=== PATIENT | male | born 1990 | race African-American/Black ===

== ENCOUNTER 2025-05-29 20:54 | Inpatient (IN) | payer MEDICAID ==
[~2025-05-29] VITALS: Ht 165.1 cm; Wt 70.8 kg
[2025-05-29 20:59] VITALS: O2SAT 100
[2025-05-29 21:32] LABS: HEMATOCRIT. 30.6 % (42.0-52.0); HEMOGLOBIN. 7.8 g/dL (14.0-18.0); MEAN PLATELET VOLUME 8.5 fl (7.4-10.4); PLATELET 694 x1000/uL (130-400); RED BLOOD CELL COUNT 5.78 mill/uL (4.7-6.1); RED CELL DISTRIBUTION WIDTH 23.4 % (11.6-14.6)
[2025-05-29 21:41] LABS: CLARITY URINE CLOUDY (CLEAR); COLOR URINE YELLOW (YELLOW); GLUCOSE URINE NEGATIVE (NEGATIVE); KETONES URINE TRACE (NEGATIVE); LEUKOCYTE ESTERASE URINE 3+ (NEGATIVE); NITRITE URINE NEGATIVE (NEGATIVE); OCCULT BLOOD URINE TRACE (NEGATIVE); PH URINE 6.0 (4.5-8.0); PROTEIN URINE 1+ (NEGATIVE); SPECIFIC GRAVITY URINE 1.013 (1.005-1.030); UROBILINOGEN URINE 1.0 E.U./dL (0.2-1.0)
[2025-05-29 21:47] LABS: CREATININE 0.9 mg/dL (0.6-1.3); UREA NITROGEN BLOOD 11 mg/dL (9-23)
[2025-05-29 21:53] LABS: EOSINOPHILS % MANUAL 1.0 % (0.0-5.0); LYMPHOCYTES % MANUAL 10.0 % (20.0-50.0); MONOCYTES % MANUAL 5.0 % (2.0-8.0); NEUTROPHILS % MANUAL 84.0 % (45.0-75.0); PLATELET ESTIMATE INCREASED
[2025-05-29 22:11] LABS: BACTERIA URINE TRACE; RBC URINE 0-2 /hpf (0-2); SQUAMOUS EPITHELIAL CELL URINE FEW /lpf (RARE/1+); WBC URINE 50-100 /hpf (0-2)
[2025-05-29] MEDS: ONDANSETRON HCL 4MG/2ML INJ IV ONE (22:40)
[2025-05-29] MEDS: SODIUM CHLORIDE 0.9% (SEPSIS BOLUS) IV ONE (22:40)
[2025-05-29] MEDS: PIPERACILLIN/TAZO 3.375G/50ML 50 ML IV ONE (22:41)
[2025-05-29 22:47] LABS: ASPARTATE AMINOTRANSFERASE 53 IU/L (<34)
[2025-05-29 22:48] LABS: BILIRUBIN DIRECT 0.2 mg/dL (<=3.0); BILIRUBIN TOTAL 0.4 mg/dL (0.1-1.0); PROTEIN TOTAL 6.7 g/dL (6.0-8.3)
[2025-05-30] MEDS: VANCOMYCIN 1G PREMIX 200 ML IV ONE (00:33)
[2025-05-30] MEDS ORDERED: CLONIDINE 0.1MG TABLET PO PRN (00:45)
[2025-05-30] MEDS ORDERED: CEFTRIAXONE 1,000 MG in DEXT 5% WATER 100 ML IV SCH (00:45)
[2025-05-30] MEDS ORDERED: ONDANSETRON HCL 4MG/2ML INJ IV PRN (00:45)
[2025-05-30] MEDS ORDERED: ACETAMINOPHEN 325MG TABLET PO PRN (00:45)
[2025-05-30] MEDS: KCL 20MEQ/100ML PREMIX 100 ML IV SCH (00:51)
[2025-05-30] MEDS: MAGNESIUM 2 G PREMIX 50 ML IV SCH (00:51)
[2025-05-30] MEDS: ACETAMINOPHEN 325MG TABLET PO PRN (01:14)
[2025-05-30 02:00] VITALS: BP 124/86; PULSE 100; RESP 19; TEMP 36.4; TEMP 36.4736; O2SAT 100
[2025-05-30] MEDS: PANTOPRAZOLE SODIUM 40 MG/VIAL IV SCH (02:33)
[2025-05-30] MEDS: AZITHROMYCIN 500 MG TABLET PO SCH (02:33)
[2025-05-30] MEDS: CEFTRIAXONE 1GM/50ML 50ML IV SCH (02:58)
[2025-05-30] MEDS: SODIUM CHLORIDE 0.9% 1,000 ML IV SCH (02:59)
[2025-05-30 03:13] LABS: LACTATE DEHYDROGENASE 210 IU/L (120-246)
[2025-05-30 04:00] VITALS: BP 121/84; PULSE 84; RESP 19; TEMP 36.6; O2SAT 100
[2025-05-30] MEDS: HYDROCODONE/ACETAMINOPHEN 5/325MG TABLET PO NR (04:19)
[2025-05-30 08:49] LABS: FOLIC ACID (FOLATE) SERUM 6.66 ng/mL (>5.38); VITAMIN B12 SERUM 764 pg/mL (211-911)
[2025-05-30 09:14] LABS: *AMPHETAMINES SCREEN URINE NEGATIVE (NEGATIVE); *BARBITURATES SCREEN URINE NEGATIVE (NEGATIVE); *BENZODIAZEPINES SCREEN URINE NEGATIVE (NEGATIVE); *COCAINE SCREEN URINE NEGATIVE (NEGATIVE); METHADONE URINE SCREEN NEGATIVE (NEGATIVE)
[2025-05-30 09:15] LABS: CANNABINOID URINE SCREEN PRESUMPTIVE POSITIVE (NEGATIVE); ECSTASY MDMA SCREEN URINE NEGATIVE (NEGATIVE); OPIATES URINE SCREEN PRESUMPTIVE POSITIVE (NEGATIVE); PHENCYCLIDINE URINE SCREEN NEGATIVE (NEGATIVE)
[2025-05-30] MEDS ORDERED: DIATR MEGLU/DIATRIZOATE SOLN 30ML PO SCH (09:15)
[2025-05-30] MEDS ORDERED: DIATR MEGLU/DIATRIZOATE SOLN 120ML ONE (10:46)
[2025-05-30 12:00] VITALS: BP 110/71; PULSE 96; RESP 18; TEMP 36.4; O2SAT 100
[2025-05-30 16:00] VITALS: BP 103/65; PULSE 104; RESP 18; TEMP 36.2; O2SAT 100
[2025-05-30 20:00] VITALS: BP 115/74; PULSE 102; RESP 19; TEMP 36.4; O2SAT 99
[2025-05-30] MEDS: GUAIFENESIN 200MG/10ML SUGAR FREE UDC PO PRN (20:57)
[2025-05-30] MEDS: MORPHINE SULFATE 2 MG/ML INJ (NOT FOR IM USE) IV NR (23:48)
[2025-05-31] VITALS (7 sets, daily range): BP systolic 111–127; BP diastolic 74–81; PULSE 92–104; RESP 14–20; TEMP 36.114–37; O2SAT 99
[2025-05-31 06:04] LABS: CREATININE 0.7 mg/dL (0.6-1.3); TRIGLYCERIDE 66 mg/dL (0-150); UREA NITROGEN BLOOD < 5 mg/dL (9-23)
[2025-05-31 06:05] LABS: LDL CHOLESTEROL 58 mg/dL (5-100); T4 FREE 0.99 ng/dL (0.89-1.76)
[2025-05-31 07:05] LABS: BASOPHILS % 0.4 % (0.0-2.0); EOSINOPHILS % 0.8 % (0.0-5.0); HEMATOCRIT. 22.3 % (42.0-52.0); LYMPHOCYTES % 14.0 % (20.0-50.0); MEAN PLATELET VOLUME 8.6 fl (7.4-10.4); MONOCYTES % 10.4 % (2.0-8.0); NEUTROPHILS % 74.4 % (40.0-76.0); PLATELET 502 x1000/uL (130-400); RED BLOOD CELL COUNT 4.20 mill/uL (4.7-6.1); RED CELL DISTRIBUTION WIDTH 22.8 % (11.6-14.6)
[2025-05-31 07:50] LABS: HEMOGLOBIN. 6.0 g/dL (14.0-18.0)
[2025-05-31] MEDS: POTASSIUM CHLORIDE 20MEQ TABLET SR PO SCH (07:53)
[2025-05-31] MEDS ORDERED: NALOXONE HCL 0.4MG/ML VIAL IV PRN (08:00)
[2025-05-31] MEDS ORDERED: KCL 20MEQ/100ML PREMIX 100 ML IV SCH (09:30)
[2025-05-31] MEDS: KCL 20MEQ/100ML PREMIX 100 ML IV SCH ×2 (15:42→23:15)
[2025-05-31] MEDS: HYDROCODONE/ACETAMINOPHEN 5/325MG TABLET PO PRN (20:26)
[2025-06-01] VITALS (8 sets, daily range): BP systolic 107–127; BP diastolic 72–93; PULSE 82–101; RESP 16–20; TEMP 36.7–37.39188; O2SAT 98–100
[2025-06-01 05:26] LABS: CREATININE 0.5 mg/dL (0.6-1.3); UREA NITROGEN BLOOD < 5 mg/dL (9-23)
[2025-06-01 06:44] LABS: BASOPHILS % 0.5 % (0.0-2.0); EOSINOPHILS % 1.2 % (0.0-5.0); LYMPHOCYTES % 15.9 % (20.0-50.0); MEAN PLATELET VOLUME 8.5 fl (7.4-10.4); MONOCYTES % 8.6 % (2.0-8.0); NEUTROPHILS % 73.8 % (40.0-76.0); PLATELET 485 x1000/uL (130-400); RED BLOOD CELL COUNT 4.05 mill/uL (4.7-6.1); RED CELL DISTRIBUTION WIDTH 24.5 % (11.6-14.6)
[2025-06-01 06:57] LABS: ADD RBC MORPHOLOGY NO; HEMATOCRIT. 23.0 % (42.0-52.0); HEMOGLOBIN. 6.6 g/dL (14.0-18.0)
[2025-06-01] MEDS ORDERED: KCL 20MEQ/100ML PREMIX 100 ML IV SCH (08:15)
[2025-06-01] MEDS: KCL 20MEQ/100ML PREMIX 100 ML IV SCH (16:31)
[2025-06-02] VITALS: BP 121/73; PULSE 88; RESP 17; TEMP 36.6; O2SAT 98
[2025-06-02 07:57] LABS: INR 1.1
[2025-06-02 07:58] LABS: CREATININE 0.6 mg/dL (0.6-1.3); UREA NITROGEN BLOOD < 5 mg/dL (9-23)
[2025-06-02 08:00] VITALS: BP 116/80; PULSE 89; RESP 18; TEMP 36.2; O2SAT 100
[2025-06-02 08:45] LABS: BASOPHILS % 0.9 % (0.0-2.0); EOSINOPHILS % 3.1 % (0.0-5.0); HEMATOCRIT. 33.0 % (42.0-52.0); HEMOGLOBIN. 9.8 g/dL (14.0-18.0); LYMPHOCYTES % 38.4 % (20.0-50.0); MEAN PLATELET VOLUME 8.6 fl (7.4-10.4); MONOCYTES % 9.3 % (2.0-8.0); NEUTROPHILS % 48.3 % (40.0-76.0); PLATELET 651 x1000/uL (130-400); RED BLOOD CELL COUNT 5.28 mill/uL (4.7-6.1); RED CELL DISTRIBUTION WIDTH 36.6 % (11.6-14.6)
[2025-06-02] MEDS ORDERED: PROPOFOL 200MG/20ML VIAL IV ONE (11:54)
[2025-06-02] MEDS ORDERED: FENTANYL CITRATE/PF 50MCG/ML 2ML VIAL ONE (12:11)
[2025-06-02] MEDS ORDERED: MIDAZOLAM HCL 2 MG/2 ML VIAL ONE (12:11)
[2025-06-02] MEDS ORDERED: ONDANSETRON HCL 4MG/2ML INJ IV PRN (13:00)
[2025-06-02] MEDS ORDERED: MEPERIDINE HCL/PF 25MG/ML CPJ IV PRN (13:00)
[2025-06-02] MEDS ORDERED: FAMOTIDINE 20MG/2ML VIAL IV PRN (13:00)
[2025-06-02] MEDS ORDERED: HYDRALAZINE 20MG/ML VIAL IV PRN ×2 (13:00)
[2025-06-02] MEDS ORDERED: HYDROMORPHONE HCL/PF 1MG/ML INJ IV PRN (13:00)
[2025-06-02] MEDS ORDERED: LABETALOL 5MG/ML 4ML INJ IV PRN (13:00)
[2025-06-02] MEDS ORDERED: ACETAMINOPHEN 1,000MG/100ML PREMIX IV PRN (13:00)
[2025-06-02 13:30] VITALS: BP 116/80; PULSE 89; RESP 18; TEMP 36.9; O2SAT 100
[2025-06-02 16:00] VITALS: BP 127/79; PULSE 105; RESP 20; TEMP 36.7; O2SAT 98
[2025-06-02] MEDS: KCL 20MEQ/100ML PREMIX 100 ML IV SCH (16:46)
[2025-06-02 20:00] VITALS: BP 120/87; PULSE 94; RESP 20; TEMP 36.9; O2SAT 98
[2025-06-03] VITALS: BP 132/94; PULSE 91; RESP 20; TEMP 36.8; O2SAT 99
[2025-06-03 04:00] VITALS: BP 126/89; PULSE 81; RESP 20; TEMP 36.3; O2SAT 100
[2025-06-03 07:14] LABS: BASOPHILS % 1.6 % (0.0-2.0); EOSINOPHILS % 4.4 % (0.0-5.0); HEMATOCRIT. 29.0 % (42.0-52.0); HEMOGLOBIN. 8.6 g/dL (14.0-18.0); LYMPHOCYTES % 33.6 % (20.0-50.0); MEAN PLATELET VOLUME 8.5 fl (7.4-10.4); MONOCYTES % 11.4 % (2.0-8.0); NEUTROPHILS % 49.0 % (40.0-76.0); PLATELET 629 x1000/uL (130-400); RED BLOOD CELL COUNT 4.74 mill/uL (4.7-6.1); RED CELL DISTRIBUTION WIDTH 36.9 % (11.6-14.6)
[2025-06-03 07:19] LABS: CREATININE 0.5 mg/dL (0.6-1.3)
[2025-06-03 07:20] LABS: UREA NITROGEN BLOOD < 5 mg/dL (9-23)
[2025-06-03 08:00] VITALS: BP 127/77; PULSE 88; RESP 20; TEMP 36.8; O2SAT 100
[2025-06-03] MEDS: POTASSIUM CHLORIDE 20MEQ TABLET SR PO NR (08:02)
[2025-06-03 09:49] VITALS: BP 124/71; PULSE 76; RESP 20; TEMP 98.3
[2025-06-03] MEDS ORDERED: NON FORMULARY MED XX SCH (11:45)
[2025-06-03] MEDS: IRON SUCROSE COMPLEX 100 MG/5 ML ML IV SCH (11:56)
[2025-06-03 12:00] VITALS: BP 124/76; PULSE 98; RESP 18; TEMP 36.7; O2SAT 98
[2025-06-03] MEDS ORDERED: TOPUD PO ×2 (13:21→13:22)
== END 2025-06-03 15:35 | disposition home or self-care (01) | DRG 254 ==
LOC: ER 20:54 → 8WST 23:59 → EDBEDREQTM 05-30 00:20 → EDBEDREQ 05-30 00:20 → ENRESERV 05-30 00:51
PROVIDERS: ADMIT Internal Medicine; ATTEND Internal Medicine
PROC: 30233N1 Transfusion of Nonautologous Red Blood Cells into Peripheral Vein, Percutaneous Approach (ICD-10-PCS; 2025-05-31)
PROC: 0DBH8ZX Excision of Cecum, Via Natural or Artificial Opening Endoscopic, Diagnostic (ICD-10-PCS; principal; 2025-06-02)
PROC: 0DBE8ZX Excision of Large Intestine, Via Natural or Artificial Opening Endoscopic, Diagnostic (ICD-10-PCS; 2025-06-02)
PROC: 0DBP8ZX Excision of Rectum, Via Natural or Artificial Opening Endoscopic, Diagnostic (ICD-10-PCS; 2025-06-02)
DX: K63.5 Polyp of colon (principal); A08.4 Viral intestinal infection, unspecified; D12.6 Benign neoplasm of colon, unspecified; D50.9 Iron deficiency anemia, unspecified; F17.290 Nicotine dependence, other tobacco product, uncomplicated; D56.3 Thalassemia minor; R65.10 Systemic inflammatory response syndrome (SIRS) of non-infectious origin without acute organ dysfunction; K52.89 Other specified noninfective gastroenteritis and colitis; J20.9 Acute bronchitis, unspecified; D75.839 Thrombocytosis, unspecified; E86.0 Dehydration; E87.6 Hypokalemia; Z20.822 Contact with and (suspected) exposure to COVID-19
CPT/HCPCS: 36415; 71045; 74176; 80048; 80061; 80076; 80305; 81003; 82270; 82607; 82728; 82746; 83540; 83550; 83605; 83615; 83735; 84132; 84439; 84443; 84481; 85025; 85044; 86850; 86900; 86920; 87015; 87045; 87077; 87186; 87426; 87427; 87449; 88305; 89055; 93005; 96365; 96367; 96375; 99291; A4606; J0696; J2250; J2270; J2405; J2470; J2543; J2704; J3010; J3373; J3475; J3480; J7030; P9016; Q9963

== ENCOUNTER 2025-08-28 17:13 | Inpatient (IN) | payer SELFPAY ==
[~2025-08-28] VITALS: Ht 177.8 cm; Wt 69.4 kg
[~2025-08-28 17:13] MED LIST: TOPUD PO
[2025-08-28 17:25] VITALS: O2SAT 99
[2025-08-28] MEDS ORDERED: IBUPROFEN 600MG TABLET PO ONE (19:00)
[2025-08-28 19:22] LABS: CLARITY URINE CLOUDY (CLEAR); COLOR URINE DARK YELLOW (YELLOW); GLUCOSE URINE NEGATIVE (NEGATIVE); KETONES URINE TRACE (NEGATIVE); LEUKOCYTE ESTERASE URINE 2+ (NEGATIVE); NITRITE URINE NEGATIVE (NEGATIVE); OCCULT BLOOD URINE 2+ (NEGATIVE); PH URINE 5.5 (4.5-8.0); PROTEIN URINE 1+ (NEGATIVE); SPECIFIC GRAVITY URINE 1.018 (1.005-1.030); UROBILINOGEN URINE 0.2 E.U./dL (0.2-1.0)
[2025-08-28] MEDS: SODIUM CHLORIDE 0.9% 1,000 ML IV ONE (19:28)
[2025-08-28] MEDS: KETOROLAC 15MG/ML VIAL IV ONE (19:28)
[2025-08-28 19:36] LABS: *AMPHETAMINES SCREEN URINE NEGATIVE (NEGATIVE); *BARBITURATES SCREEN URINE NEGATIVE (NEGATIVE); *BENZODIAZEPINES SCREEN URINE NEGATIVE (NEGATIVE); *COCAINE SCREEN URINE NEGATIVE (NEGATIVE); METHADONE URINE SCREEN NEGATIVE (NEGATIVE); OPIATES URINE SCREEN NEGATIVE (NEGATIVE)
[2025-08-28 19:37] LABS: CANNABINOID URINE SCREEN PRESUMPTIVE POSITIVE (NEGATIVE); ECSTASY MDMA SCREEN URINE NEGATIVE (NEGATIVE); PHENCYCLIDINE URINE SCREEN NEGATIVE (NEGATIVE)
[2025-08-28 19:42] LABS: SQUAMOUS EPITHELIAL CELL URINE 2+ /lpf (RARE/1+); WBC URINE 25-50 /hpf (0-2)
[2025-08-28 19:43] LABS: BACTERIA URINE 3+; RBC URINE 25-50 /hpf (0-2)
[2025-08-28 20:02] LABS: HEMATOCRIT. 33.8 % (42.0-52.0); HEMOGLOBIN. 9.7 g/dL (14.0-18.0); MEAN PLATELET VOLUME 7.1 fl (7.4-10.4); PLATELET 924 x1000/uL (130-400); RED BLOOD CELL COUNT 5.12 mill/uL (4.7-6.1); RED CELL DISTRIBUTION WIDTH 21.3 % (11.6-14.6)
[2025-08-28 20:49] LABS: MONOTEST NEGATIVE (NEGATIVE)
[2025-08-28] MEDS: PIPERACILLIN/TAZO 3.375G/50ML 50 ML IV ONE (21:29)
[2025-08-28] MEDS: SODIUM CHLORIDE 0.9% (SEPSIS BOLUS) IV ONE (21:29)
[2025-08-28 21:51] LABS: INR 1.5
[2025-08-28] MEDS ORDERED: CLONIDINE 0.1MG TABLET PO PRN (22:45)
[2025-08-28] MEDS ORDERED: MAGNESIUM/ALUMINUM HYDROXIDE/SIMETHICONE 30ML UDC PO PRN (22:45)
[2025-08-28] MEDS ORDERED: ONDANSETRON HCL 4MG/2ML INJ IV PRN (22:45)
[2025-08-28] MEDS ORDERED: ACETAMINOPHEN 325MG TABLET PO PRN (22:45)
[2025-08-28] MEDS: LACTATED RINGERS 1,000 ML IV SCH (22:45)
[2025-08-28] MEDS ORDERED: DOCUSATE SODIUM 100MG CAPSULE PO PRN (22:45)
[2025-08-28] MEDS ORDERED: IPRATROPIUM/ALBUTEROL 0.5-3(2.5)MG/3ML NEB HHN PRN (22:45)
[2025-08-28] MEDS ORDERED: GUAIFENESIN 200MG/10ML SUGAR FREE UDC PO PRN (22:45)
[2025-08-28] MEDS: KETOROLAC 15MG/ML VIAL IV PRN (23:48)
[2025-08-28] MEDS: CALCIUM GLUCONATE 1GM PREMIX 50 ML IV SCH (23:53)
[2025-08-28] MEDS: CEFTRIAXONE 2GM/50ML 50 ML IV SCH (23:53)
[2025-08-29] VITALS (7 sets, daily range): BP systolic 97–123; BP diastolic 58–74; PULSE 93–107; RESP 16–18; TEMP 36.3–36.9; O2SAT 98–100
[2025-08-29 00:27] LABS: EOSINOPHILS % MANUAL 2.0 % (0.0-5.0); LYMPHOCYTES % MANUAL 3.0 % (20.0-50.0); MONOCYTES % MANUAL 4.0 % (2.0-8.0); NEUTROPHILS % MANUAL 91.0 % (45.0-75.0); PLATELET ESTIMATE MARKEDLY INCREASED
[2025-08-29 02:20] LABS: UREA NITROGEN BLOOD 54 mg/dL (9-23)
[2025-08-29 02:21] LABS: ASPARTATE AMINOTRANSFERASE 78 IU/L (<34)
[2025-08-29 02:22] LABS: BILIRUBIN TOTAL 1.1 mg/dL (0.1-1.0); PHOSPHORUS 5.6 mg/dL (2.5-4.9); PROTEIN TOTAL 5.5 g/dL (6.0-8.3)
[2025-08-29 02:25] LABS: CREATININE 4.5 mg/dL (0.6-1.3)
[2025-08-29] MEDS: POTASSIUM CHLORIDE 20MEQ/PACKET PO NR (02:44)
[2025-08-29] MEDS: KCL 20MEQ/100ML PREMIX 100 ML IV SCH (02:44)
[2025-08-29] MEDS: SODIUM CHLORIDE 0.9% 250 ML IV ONE (03:01)
[2025-08-29] MEDS ORDERED: MELATONIN 3MG TABLET PO PRN (05:30)
[2025-08-29 06:22] LABS: CHLORIDE URINE RANDOM < 20 mEq/L; POTASSIUM URINE RANDOM 6.4 mEq/L
[2025-08-29 06:23] LABS: SODIUM URINE RANDOM 17 mEq/L
[2025-08-29 06:41] LABS: CREATININE 4.6 mg/dL (0.6-1.3)
[2025-08-29 06:42] LABS: HEMATOCRIT. 24.4 % (42.0-52.0); HEMOGLOBIN. 7.6 g/dL (14.0-18.0); MEAN PLATELET VOLUME 7.2 fl (7.4-10.4); PLATELET 810 x1000/uL (130-400); RED BLOOD CELL COUNT 3.98 mill/uL (4.7-6.1); RED CELL DISTRIBUTION WIDTH 21.5 % (11.6-14.6); UREA NITROGEN BLOOD 58.0 mg/dL (9-23)
[2025-08-29] MEDS: FERROUS SULFATE 325MG TABLET PO SCH (07:17)
[2025-08-29] MEDS: ASCORBIC ACID 250 MG TABLET PO SCH (07:17)
[2025-08-29 07:34] LABS: OSMOLALITY URINE 297 mOsm/kg (500-850)
[2025-08-29] MEDS: PANTOPRAZOLE SODIUM 40 MG/VIAL IV SCH (09:02)
[2025-08-29] MEDS ORDERED: POTASSIUM CHLORIDE 40 MEQ in DEXT 5% WATER 230 ML IV ONE ×2 (09:15→18:45)
[2025-08-29 09:47] LABS: HEPATITIS C AB NON REACTIVE (Neg) (Negative)
[2025-08-29] MEDS: ACETAMINOPHEN 325MG TABLET PO PRN (11:46)
[2025-08-29] MEDS: KCL 20MEQ/100ML X 2 FOR TOTAL KCL 40MEQ/200ML IV SCH (11:46)
[2025-08-29] MEDS: POTASSIUM CHLORIDE 20MEQ TABLET SR PO SCH ×2 (11:47→12:09)
[2025-08-29] MEDS ORDERED: NALOXONE HCL 0.4MG/ML VIAL IV PRN (13:45)
[2025-08-29] MEDS: MORPHINE SULFATE 2 MG/ML INJ (NOT FOR IM USE) IV PRN (15:10)
[2025-08-29] MEDS ORDERED: DIATR MEGLU/DIATRIZOATE SOLN 120ML ONE (15:38)
[2025-08-29 18:00] LABS: HEMATOCRIT. 27.1 % (42.0-52.0); HEMOGLOBIN. 8.2 g/dL (14.0-18.0); MEAN PLATELET VOLUME 7.4 fl (7.4-10.4); PLATELET 843 x1000/uL (130-400); RED BLOOD CELL COUNT 4.35 mill/uL (4.7-6.1); RED CELL DISTRIBUTION WIDTH 21.7 % (11.6-14.6)
[2025-08-29 19:30] LABS: BAND% 1.0 % (1.0-6.0); LYMPHOCYTES % MANUAL 5.0 % (20.0-50.0); MONOCYTES % MANUAL 6.0 % (2.0-8.0); NEUTROPHILS % MANUAL 88.0 % (45.0-75.0); PLATELET ESTIMATE MARKEDLY INCREASED
[2025-08-29 19:44] LABS: CREATININE 3.5 mg/dL (0.6-1.3)
[2025-08-29 19:45] LABS: UREA NITROGEN BLOOD 42 mg/dL (9-23)
[2025-08-29 19:47] LABS: PHOSPHORUS 6.6 mg/dL (2.5-4.9)
[2025-08-29] MEDS ORDERED: KCL 20MEQ/100ML X 2 FOR TOTAL KCL 40MEQ/200ML IV SCH (20:00)
[2025-08-29] MEDS ORDERED: POTASSIUM CHLORIDE 60 MEQ in DEXT 5% WATER 470 ML IV SCH (23:00)
[2025-08-29] MEDS ORDERED: KCL 20MEQ/100ML PREMIX 100 ML IV SCH (23:15)
[2025-08-29] MEDS: SODIUM BICARBONATE 8.4% 50MEQ/50ML SYR IV NR (23:17)
[2025-08-29] MEDS: POTASSIUM CHLORIDE 20MEQ/PACKET PO SCH (23:18)
[2025-08-30] VITALS: BP 98/62; PULSE 105; RESP 16; TEMP 36.7; O2SAT 100
[2025-08-30] MEDS: SODIUM BICARBONATE 150 MEQ in DEXTROSE 5% WATER 850 ML IV SCH (02:04)
[2025-08-30 04:00] VITALS: BP 100/60; PULSE 99; RESP 18; TEMP 36.6; O2SAT 100
[2025-08-30 08:00] VITALS: BP 110/69; PULSE 107; RESP 16; TEMP 36.4; O2SAT 99
[2025-08-30 08:22] LABS: BASOPHILS % 0.5 % (0.0-2.0); EOSINOPHILS % 1.6 % (0.0-5.0); HEMATOCRIT. 24.5 % (42.0-52.0); HEMOGLOBIN. 7.7 g/dL (14.0-18.0); LYMPHOCYTES % 15.7 % (20.0-50.0); MEAN PLATELET VOLUME 7.2 fl (7.4-10.4); MONOCYTES % 7.0 % (2.0-8.0); NEUTROPHILS % 75.2 % (40.0-76.0); PLATELET 902 x1000/uL (130-400); RED BLOOD CELL COUNT 3.99 mill/uL (4.7-6.1); RED CELL DISTRIBUTION WIDTH 21.0 % (11.6-14.6)
[2025-08-30 08:29] LABS: FOLIC ACID (FOLATE) SERUM 15.91 ng/mL (>5.38)
[2025-08-30 08:32] LABS: UREA NITROGEN BLOOD 37 mg/dL (9-23)
[2025-08-30 08:34] LABS: ASPARTATE AMINOTRANSFERASE 93 IU/L (<34)
[2025-08-30 08:36] LABS: BILIRUBIN DIRECT 0.5 mg/dL (<=3.0); BILIRUBIN TOTAL 0.7 mg/dL (0.1-1.0); PROTEIN TOTAL 5.6 g/dL (6.0-8.3)
[2025-08-30 08:38] LABS: ADD RBC MORPHOLOGY NO
[2025-08-30 08:42] LABS: VITAMIN B12 SERUM > 2000 pg/mL (211-911)
[2025-08-30 09:24] LABS: ERYTHROCYTE SEDIMENTATION RATE 34 mm/hr (0-15)
[2025-08-30 09:28] LABS: CREATININE 1.5 mg/dL (0.6-1.3)
[2025-08-30] MEDS ORDERED: POTASSIUM CHLORIDE 40 MEQ in DEXT 5% WATER 230 ML IV ONE (09:45)
[2025-08-30] MEDS: POTASSIUM CHLORIDE 20MEQ TABLET SR PO NR (10:49)
[2025-08-30] MEDS: KCL 20MEQ/100ML X 2 FOR TOTAL KCL 40MEQ/200ML IV SCH (10:49)
[2025-08-30 12:00] VITALS: BP 91/53; PULSE 114; RESP 16; TEMP 36.4; O2SAT 99
[2025-08-30 16:00] VITALS: BP 112/73; PULSE 104; RESP 16; TEMP 36.3; O2SAT 99
[2025-08-30 16:53] LABS: EOSINOPHILS % MANUAL 1.0 % (0.0-5.0); LYMPHOCYTES % MANUAL 7.0 % (20.0-50.0); MONOCYTES % MANUAL 4.0 % (2.0-8.0); NEUTROPHILS % MANUAL 88.0 % (45.0-75.0); PLATELET ESTIMATE MARKEDLY INCREASED
[2025-08-30] MEDS ORDERED: ASCO-494 PO (19:08)
[2025-08-30] MEDS ORDERED: FERR-63 PO (19:08)
[2025-08-30] MEDS ORDERED: POTA15TA11 MT (19:08)
[2025-08-30 20:00] VITALS: BP 105/66; PULSE 113; RESP 17; TEMP 37.3; O2SAT 99
[2025-08-30 23:55] LABS: CHLORIDE URINE RANDOM 23 mEq/L; POTASSIUM URINE RANDOM 4.6 mEq/L
[2025-08-31] VITALS (8 sets, daily range): BP systolic 107–123; BP diastolic 59–85; PULSE 111–127; RESP 16–20; TEMP 36.1–37.55856; O2SAT 99–100
[2025-08-31 00:11] LABS: SODIUM URINE RANDOM < 10 mEq/L
[2025-08-31] MEDS: POTASSIUM CHLORIDE 20MEQ TABLET SR PO NR (01:46)
[2025-08-31] MEDS ORDERED: POTASSIUM CHLORIDE 40 MEQ in DEXT 5% WATER 230 ML IV ONE (06:45)
[2025-08-31] MEDS: POTASSIUM CHLORIDE 20MEQ TABLET SR PO SCH ×2 (07:09→15:01)
[2025-08-31 11:17] LABS: MEAN PLATELET VOLUME 6.8 fl (7.4-10.4); PLATELET 771 x1000/uL (130-400); RED BLOOD CELL COUNT 3.70 mill/uL (4.7-6.1); RED CELL DISTRIBUTION WIDTH 21.2 % (11.6-14.6)
[2025-08-31 11:32] LABS: HEMATOCRIT. 23.1 % (42.0-52.0); HEMOGLOBIN. 6.8 g/dL (14.0-18.0)
[2025-08-31 11:33] LABS: CREATININE 0.7 mg/dL (0.6-1.3)
[2025-08-31 11:34] LABS: UREA NITROGEN BLOOD 13 mg/dL (9-23)
[2025-08-31 11:36] LABS: PHOSPHORUS 2.1 mg/dL (2.5-4.9)
[2025-08-31 17:00] LABS: BAND% 1.0 % (1.0-6.0); EOSINOPHILS % MANUAL 1.0 % (0.0-5.0); LYMPHOCYTES % MANUAL 2.0 % (20.0-50.0); MONOCYTES % MANUAL 9.0 % (2.0-8.0); NEUTROPHILS % MANUAL 87.0 % (45.0-75.0); PLATELET ESTIMATE INCREASED
[2025-09-01] VITALS (9 sets, daily range): BP systolic 101–117; BP diastolic 59–77; PULSE 106–126; RESP 16–18; TEMP 36.4–37.33632; O2SAT 96–100
[2025-09-01 07:11] LABS: HEMATOCRIT. 27.1 % (42.0-52.0); HEMOGLOBIN. 8.2 g/dL (14.0-18.0); MEAN PLATELET VOLUME 7.0 fl (7.4-10.4); PLATELET 608 x1000/uL (130-400); RED BLOOD CELL COUNT 4.30 mill/uL (4.7-6.1); RED CELL DISTRIBUTION WIDTH 20.4 % (11.6-14.6)
[2025-09-01 07:38] LABS: CREATININE 0.6 mg/dL (0.6-1.3); UREA NITROGEN BLOOD 8 mg/dL (9-23)
[2025-09-01] MEDS: POTASSIUM CHLORIDE 20MEQ TABLET SR PO SCH (08:21)
[2025-09-01] MEDS ORDERED: POTASSIUM CHLORIDE 40 MEQ in DEXT 5% WATER 230 ML IV ONE (12:00)
[2025-09-01] MEDS ORDERED: NON FORMULARY MED XX SCH (12:00)
[2025-09-01] MEDS: KCL 20MEQ/100ML X 2 FOR TOTAL KCL 40MEQ/200ML IV SCH (14:43)
[2025-09-01] MEDS: IRON SUCROSE COMPLEX 100 MG/5 ML ML IV SCH (14:44)
[2025-09-01 20:38] LABS: EOSINOPHILS % MANUAL 2.0 % (0.0-5.0); LYMPHOCYTES % MANUAL 4.0 % (20.0-50.0); MONOCYTES % MANUAL 6.0 % (2.0-8.0); NEUTROPHILS % MANUAL 88.0 % (45.0-75.0); PLATELET ESTIMATE INCREASED
== END 2025-09-01 16:25 | disposition home or self-care (01) | DRG 720 ==
LOC: ER 17:13 → EDBEDREQ 21:17 → EDBEDREQTM 21:17 → ENRESERV 21:26 → 5WST 22:01
PROVIDERS: ADMIT Internal Medicine; ATTEND Internal Medicine
PROC: 30233N1 Transfusion of Nonautologous Red Blood Cells into Peripheral Vein, Percutaneous Approach (ICD-10-PCS; principal; 2025-08-31)
DX: A41.9 Sepsis, unspecified organism (principal); N17.0 Acute kidney failure with tubular necrosis; K56.1 Intussusception; E83.51 Hypocalcemia; N25.89 Other disorders resulting from impaired renal tubular function; D50.9 Iron deficiency anemia, unspecified; F12.90 Cannabis use, unspecified, uncomplicated; B96.1 Klebsiella pneumoniae [K. pneumoniae] as the cause of diseases classified elsewhere; N39.0 Urinary tract infection, site not specified; E87.1 Hypo-osmolality and hyponatremia; F17.200 Nicotine dependence, unspecified, uncomplicated; E86.0 Dehydration; E87.6 Hypokalemia; R80.9 Proteinuria, unspecified; D12.6 Benign neoplasm of colon, unspecified; E86.1 Hypovolemia; D75.839 Thrombocytosis, unspecified; Z71.6 Tobacco abuse counseling; Z86.0109 Personal history of other colon polyps; Z20.822 Contact with and (suspected) exposure to COVID-19
CPT/HCPCS: 36415; 70490; 71045; 74176; 80048; 80051; 80053; 80076; 80305; 81003; 82330; 82436; 82607; 82728; 82746; 83540; 83550; 83605; 83735; 83930; 83935; 83970; 84100; 84133; 84145; 84300; 85025; 85044; 85651; 86308; 86430; 86705; 86850; 86900; 86920; 87077; 87186; 87340; 87426; 99291; J0612; J0696; J1885; J2270; J2470; J2543; J3480; J3490; J7030; J7060; J7070; J7120; P9016; Q9963